=== PATIENT | male | born 1995 | race Caucasian/White ===

== ENCOUNTER 2019-04-21 11:18 | Emergency (ER) | payer SELFPAY ==
--- NOTE | 2019-04-21 11:37 | ED ---
Upper Extremity Pain - HPI Summary HPI Summary: Patient is a 23 y/o M presenting to the ED for a chief complaint of right arm and right shoulder pain after a possible injury to the area that occurred 2 years ago. The pain is described as a "popping" and spasm sensation. 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 Patient denies numbness or paresthesia in the right UE. The pain worsens with movement and improves with rest. Any significant PMHx or FMHx is denied. He does not have a PCP or health insurance. - History of Current Complaint Chief Complaint: EDExtremityUpper Stated Complaint: ARM PAIN Time Seen by Provider: 04/21/19 11:31 Hx Obtained From: Patient Mechanism Of Injury: Unknown Onset/Duration: Started Weeks Ago, Still Present Timing: Constant Severity Initially: Moderate Severity Currently: Moderate Pain Location: Shoulder - Right, Arm - Right Character: Spasmodic Aggravating Factor(s): Movement Alleviating Factor(s): Rest Associated Signs & Symptoms: Negative: Numbness/Tingling - Allergies/Home Medications Allergies/Adverse Reactions: Allergies Allergy/AdvReac Type Severity Reaction Status Date / Time No Known Allergies Allergy Verified 07/19/14 09:28 Home Medications: Home Medications Multivitamins 1 tab PO DAILY 07/12/14 [History Confirmed 07/19/14] Ibuprofen [Ibuprofen 200 MG] 800 mg PO Q8H PRN 07/19/14 [History Confirmed 07/19] PMH/Surg Hx/FS Hx/Imm Hx Previously Healthy: Yes Endocrine/Hematology History: Denies: Hx Diabetes, Hx Thyroid Disease Cardiovascular History: Denies: Hx Hypertension Respiratory History: Denies: Hx Asthma, Hx Chronic Obstructive Pulmonary Disease (COPD) GI History: Denies: Hx Ulcer Sensory History: Denies: Hx Contacts or Glasses, Hx Legally Blind, Hx Deafness, Hx Hearing Aid Opthamlomology History: Denies: Hx Contacts or Glasses, Hx Legally Blind EENT History: Denies: Hx Deafness Psychiatric History: Reports: Hx Bipolar Disorder - Surgical History Surgical History: Yes Surgery Procedure, Year, and Place: 07/19/2014 - S/P tonsilectomy. 07/20/2014 - S/ P control of bleed Hx Anesthesia Reactions: No Infectious Disease History: No Infectious Disease History: Denies: Hx Clostridium Difficile, Hx Hepatitis, Hx Human Immunodeficiency Virus (HIV), Hx of Known/Suspected MRSA, Hx Tuberculosis, Hx Known/Suspected VRE , Hx Known/Suspected VRSA, History Other Infectious Disease, Traveled Outside the [place] in Last 30 Days - Family History Known Family History: Negative: Cardiac Disease, Hypertension, Diabetes - Social History Occupation: Employed Full-time Lives: With Family Alcohol Use: None Hx Substance Use: No Substance Use Type: Reports: None Hx Tobacco Use: Yes Smoking Status (MU): Former Smoker Type: Cigarettes Amount Used/How Often: a little bit Length of Time of Smoking/Using Tobacco: maybe a year Have You Smoked in the Last Year: No Review of Systems Positive: Arthralgia - Right shoulder, Myalgia - Right arm Negative: Paresthesia - Right UE, Numbness - Right UE All Other Systems Reviewed And Are Negative: Yes Physical Exam - Summary Physical Exam Summary: Constitutional: Well-developed, Well-nourished, Alert. (-) Distressed Skin: Warm, Dry HENT: Normocephalic; Atraumatic Eyes: Conjunctiva normal Neck: Musculoskeletal ROM normal neck. (-) JVD, (-) Stridor, (-) Tracheal deviation Cardio: Rhythm regular, rate normal, Heart sounds normal; Intact distal pulses; The pedal pulses are 2+ and symmetric. Radial pulses are 2+ and symmetric. Pulmonary/Chest wall: Effort normal. (-) Respiratory distress, (-) Wheezes, (-) Rales Abd: Soft, (-) tenderness, (-) Distension, (-) Guarding, (-) Rebound Musculoskeletal: (-) Edema. Muscle spasm in the right bicep and shoulder, full ROM and sensation intact, pain with flexion and extension, no signs of trauma. Neuro: Alert, Oriented x3 Psych: Mood and affect Normal Triage Information Reviewed: Yes Vital Signs On Initial Exam: Initial Vitals Temp Pulse Resp BP Pulse Ox 98.1 F 64 16 146/74 98 04/21/19 11:20 04/21/19 11:20 04/21/19 11:20 04/21/19 11:20 04/21/19 11:20 Vital Signs Reviewed: Yes Procedures - Sedation Patient Received Moderate/Deep Sedation with Procedure: No Diagnostics - Vital Signs Vital Signs Temp Pulse Resp BP Pulse Ox 04/21/19 11:20 98.1 F 64 16 146/74 98 - Laboratory Lab Statement: Any lab studies that have been ordered have been reviewed, and results considered in the medical decision making process. Course/Dx - Course Course Of Treatment: Patient is a 23 y/o M presenting to the ED for a chief complaint of right arm and right shoulder pain after a possible injury to the area that occurred 2 years ago. The pain is described as a "popping" and spasm sensation. 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 Patient denies numbness or paresthesia in the right UE. The pain worsens with movement and improves with rest. Any significant PMHx or FMHx is denied. On exam, muscle spasm in the right bicep and shoulder, full ROM and sensation intact, pain with flexion and extension, no signs of trauma. Patient will be discharged with a diagnosis of muscle strain. Follow up with [facility] in 2-3 days. - Diagnoses Provider Diagnoses: Muscle strain Discharge ED - Sign-Out/Discharge Documenting (check all that apply): Patient Departure - Discharge - Discharge Plan Condition: Stable Disposition: HOME Patient Education Materials: Muscle Strain (ED) Referrals: Becki Batista MD [Medical Doctor] - [facility] [Outside] Additional Instructions: RETURN TO THE EMERGENCY DEPARTMENT FOR CHANGING OR WORSENING SYMPTOMS. Follow up with [facility] in 2-3 days. - Billing Disposition and Condition Condition: STABLE Disposition: Home - Attestation Statements Document Initiated by Syeda: Yes Documenting Scribe: Shana Dodd Provider For Whom Syeda is Documenting (Include Credential): Denny Greenfield MD Scribe Attestation: Shana Busby scribed for Denny Greenfield MD on 04/21/19 at 1849. Scribe Documentation Reviewed: Yes Provider Attestation: The documentation as recorded by the Shana [email or web address] accurately reflects the service I personally performed and the decisions made by , Denny Greenfield MD Status of Scribe Document: Viewed
[2019-04-21 12:11] VITALS: BP 118/69
== END 2019-04-21 12:06 | disposition home or self-care (01) ==
LOC: ED 11:18
DX: S46.911A Strain of unspecified muscle, fascia and tendon at shoulder and upper arm level, right arm, initial encounter (principal); X58.XXXA Exposure to other specified factors, initial encounter; Y93.H3 Activity, building and construction; Y92.9 Unspecified place or not applicable; Y99.0 Civilian activity done for income or pay; Z87.891 Personal history of nicotine dependence
CPT/HCPCS: 99281